=== PATIENT | female | born 1995 | race African-American/Black ===

== ENCOUNTER 2017-03-12 14:14 | Emergency (ER) | payer MEDICAID ==
[2017-03-12 15:08] LABS: Bilirubin Negative (Negative); Blood, Urine Trace (Negative); Clarity SL HAZY (Clear); Glucose, Urine (Dipstick) 500 mg/dL (Negative); Leukocyte Small (Negative); Nitrite Negative (Negative); Protein, Urine (Dipstick) Negative (Neg-Trace); pH, Urine 5.5 (5.0-9.0)
[2017-03-12 15:18] LABS: Bacteria/HPF Rare-Few HPF (None Seen); RBC/HPF None Seen HPF (0-3); WBC/HPF 0-3 HPF (0-3)
[2017-03-12 15:19] LABS: Specific Gravity, Urine 1.025 (1.002-1.036)
[2017-03-14 01:23] LABS: Chlamydia by PCR Not Detected (NotDetected); GC by PCR Not Detected (NotDetected)
== END 2017-03-12 15:27 | disposition home or self-care (01) ==
LOC: NAV ERS 14:14
DX: O98.812 Other maternal infectious and parasitic diseases complicating pregnancy, second trimester (principal); B37.3 Candidiasis of vulva and vagina; O99.332 Smoking (tobacco) complicating pregnancy, second trimester; Z3A.25 25 weeks gestation of pregnancy
CPT/HCPCS: 36416; 81003; 81015; 87491; 87591; 99284

== ENCOUNTER 2019-11-12 17:23 | Emergency (ER) | payer SELFPAY ==
[2019-11-12 18:06] LABS: Bilirubin Negative (Negative); Blood, Urine Trace (Negative); Clarity Clear (Clear); Glucose, Urine (Dipstick) Negative (Negative); Ketone, Urine Negative (Negative); Leukocyte Small (Negative); Nitrite Negative (Negative); Protein, Urine (Dipstick) Negative (Neg-Trace); Specific Gravity, Urine 1.025 (1.005-1.030)
[2019-11-12 18:16] LABS: Pregnancy Test - Urine (BHCG) Negative (Negative); Pregu Control Background? CLEAR/WHITE (CLR/WHITE); Pregu Control Bar Appear? YES (CONTROL BAR); Specific Gravity 1.025 (1.002-1.036)
[2019-11-12 18:18] LABS: Bacteria/HPF 1+ HPF (None Seen); RBC/HPF 0-3 HPF (0-3); WBC/HPF 0-3 HPF (0-3)
== END 2019-11-12 18:50 | disposition home or self-care (01) ==
LOC: NAV ERS 17:23
DX: N76.0 Acute vaginitis (principal); F17.210 Nicotine dependence, cigarettes, uncomplicated
CPT/HCPCS: 81003; 81015; 81025; 87086; 99406

== ENCOUNTER 2022-05-14 18:01 | Emergency (ER) | payer OTHER ==
[2022-05-14] MEDS ORDERED: cefTRIAXone\\ROCEPHIN 250 MG VIAL ONE ×2 (19:15→19:23)
[2022-05-14] MEDS ORDERED: Azithromycin 250 MG TAB ONE ×2 (19:15→19:23)
[2022-05-15 20:46] LABS: Chlam.trachomatis by PCR,Urine Not Detected (NotDetected); GC N.gonorrhoeae PCR,UrineVOID Not Detected (NotDetected)
== END 2022-05-14 19:29 | disposition home or self-care (01) ==
LOC: NAV ERS 18:01
DX: N76.2 Acute vulvitis (principal); N76.0 Acute vaginitis; K04.4 Acute apical periodontitis of pulpal origin; K02.9 Dental caries, unspecified; F17.200 Nicotine dependence, unspecified, uncomplicated
CPT/HCPCS: 87491; 87591; 96372; 99283; J0696

== ENCOUNTER 2022-05-15 22:04 | Emergency (ER) | payer OTHER | END 2022-05-15 23:40 | disposition home or self-care (01) | LOC: NAV ERS 22:04 | DX: N76.2 Acute vulvitis (principal); F17.210 Nicotine dependence, cigarettes, uncomplicated | CPT/HCPCS: 99283 ==

== ENCOUNTER 2022-07-09 12:17 | Emergency (ER) | payer OTHER ==
[2022-07-09] MEDS ORDERED: Ketorolac Tromethamine 30 MG/ML VIAL ONE (12:32)
== END 2022-07-09 13:10 | disposition home or self-care (01) ==
LOC: NAV ERS 12:17
DX: K08.89 Other specified disorders of teeth and supporting structures (principal); F17.210 Nicotine dependence, cigarettes, uncomplicated
CPT/HCPCS: 96374; J1885